=== PATIENT | male | born 1975 | race Caucasian/White ===

== ENCOUNTER 2017-03-07 17:52 | Emergency (ER) | payer MEDICAID ==
[2017-03-07] MEDS: LIDOCAINE 2% VISC 15 ML CUP PO (23:15)
== END 2017-03-07 23:24 | disposition home or self-care (01) ==
LOC: FTE 17:52
DX: R09.89 Other specified symptoms and signs involving the circulatory and respiratory systems (principal)
CPT/HCPCS: 70490; 99284-25